=== PATIENT | male | born 1995 | race Caucasian/White ===

== ENCOUNTER 2019-09-23 20:02 | Emergency (ER) | payer MEDICAID ==
[~2019-09-23] VITALS: Ht 177.8 cm; Wt 68.9 kg
[2019-09-23 20:31] VITALS: BP_SYST 127
--- NOTE | 2019-09-23 20:31 | NUR ---
Patient triaged and placed in waiting room. VSS and patient appears in no acute distress at this time. Awaiting available bed, and MD notified of need for MSE.
[2019-09-23 23:30] LABS: BASOPHILS % (AUTO) 0.5 % (0.0-2.0); EOSINOPHILS % (AUTO) 0.3 % (0.0-4.0); HEMATOCRIT 45.9 % (36-54); HEMOGLOBIN 15.7 g/dL (14.0-18.0); LYMPHOCYTES % (AUTO) 23.3 % (20.5-51.5); MEAN CORPUSCULAR HEMOGLOBIN 33 pg (27-31); MEAN CORPUSCULAR HGB CONC 34 % (32-36); MEAN CORPUSCULAR VOLUME 95 fL (79.0-98.0); MONOCYTES # (AUTO) 0.8 K/uL (0.0-1.0); MONOCYTES % (AUTO) 9.3 % (1.7-9.3); NEUTROPHILS # (AUTO) 5.6 K/uL (1.8-7.7); NEUTROPHILS % (AUTO) 66.6 % (40.0-70.0); PLATELET COUNT (AUTO) 201 K/uL (130-430); RED BLOOD CELL COUNT(AUTO) 4.85 MIL/uL (4.2-6.2); RED CELL DISTRIBUTION WIDTH 12.7 % (9.0-15.0); WHITE BLOOD COUNT (AUTO) 8.4 K/uL (4.8-10.8)
--- NOTE | 2019-09-23 23:30 | NUR ---
Patient to ER bed 1 to gown for evaluation. Side rails up. Report given to ROHAN TALLEY.
[2019-09-23 23:39] LABS: CALCIUM 9.6 mg/dL (8.4-11.0); CREATININE 0.99 mg/dL (0.55-1.30)
--- NOTE | 2019-09-23 23:45 | NUR ---
Pt is a 24 y/o male who comes into the ER c/o nausea for 2 days. Pt states "I can't keep anything down". Pt also states that he has been throwing up some blood everytime he vomitted. Pt states his ABD is in a little pain due to throwing up too much, as well as some throat pain associated with the vomitting. Pt also states he has been constipated 2 days. Pt denies any SOB, chest pain. Will cont to monitor pt.
[2019-09-23 23:49] LABS: ALBUMIN 5.2 g/dL (3.4-4.8); TOTAL BILIRUBIN 0.6 mg/dL (0.0-1.0)
[2019-09-24] MEDS ORDERED: ONDANSETRON HCL 4 MG/2 ML VIAL IVP ONE (00:30)
[2019-09-24 00:31] LABS: LIPASE 69 U/L (73-393)
[2019-09-24 00:32] LABS: BILIRUBIN,URINE 2+ (NEGATIVE); BLOOD, URINE NEGATIVE (NEGATIVE); CLARITY/URINE CLEAR (CLEAR); COLOR,URINE YELLOW (YELLOW); GLUCOSE,URINE NEGATIVE (NEGATIVE); KETONES,URINE 3+ (NEGATIVE); LEUKOCYTE ESTERASE ,URINE NEGATIVE (NEGATIVE); NITRITE, URINE NEGATIVE (NEGATIVE); PH,URINE 6.5 (5.0-8.0); PROTEIN URINE 2+ (NEGATIVE); UROBILINOGEN,URINE 0.2 (0.2-1.0)
[2019-09-24 00:35] LABS: ALCOHOL, BLOOD < 3 mg/dL (<10)
[2019-09-24 00:45] LABS: BACTERIA,URINE FEW /HPF (None Seen); RBC,URINE 0-3 /HPF (0-3); WBC,URINE 0-3 /HPF (0-3)
--- NOTE | 2019-09-24 01:00 | NUR ---
ER Dr. Amos at bedside examining patient.
--- NOTE | 2019-09-24 01:10 | NUR ---
ER Dr. Amos at bedside performing rectal exam on patient.
[2019-09-24] MEDS ORDERED: PANTOPRAZOLE SODIUM 40 MG/VIAL (PROTONIX) IVP ONE (01:15)
--- NOTE | 2019-09-24 01:44 | NUR ---
Radiology taking pt for CT via gurney. No acute distress or discomfort noted.
[2019-09-24] MEDS ORDERED: IOHEXOL 100 ML IV ONE (02:02)
--- NOTE | 2019-09-24 03:15 | NUR ---
PT PO CHALLENGED PER MD ORDER. TOLERATED WELL. WILL CONT. TO MONITOR.
[2019-09-24 04:26] VITALS: BP_SYST 127
--- NOTE | 2019-09-24 04:26 | NUR ---
Patient given written and verbal discharge instructions and verbalizes understanding. ER MD Dr. Amos discussed with patient the results and treatment provided. Patient in stable condition. ID arm band removed. IV catheter removed intact and dressing applied, no active bleeding. Rx of bentyl and zofran given. Patient educated on pain management and to follow up with PMD. Pain Scale 0/10. Opportunity for questions provided and answered. Medication side effect fact sheet provided.
== END 2019-09-24 04:26 | disposition home or self-care (01) ==
LOC: SED 20:02
DX: R10.13 Epigastric pain (principal); R11.2 Nausea with vomiting, unspecified
CPT/HCPCS: 36415; 74177; 80053; 81000; 83690; 85025; 86886; 86900; 86901; 96374; 96375; 99284; C9113; G0482; J2405; Q9967

== ENCOUNTER 2020-07-03 17:28 | Emergency (ER) | payer MEDICAID ==
[~2020-07-03] VITALS: Ht 177.8 cm; Wt 63.5 kg
[2020-07-03 17:35] VITALS: BP_SYST 156
--- NOTE | 2020-07-03 17:37 | NUR ---
PLACED IN BED 8
--- NOTE | 2020-07-03 17:42 | NUR ---
Patient arrived via POV, AAOx4, and ambulatory grasping at abdomen. Patient c/c of nausea, vomiting, and abdominal pain. Patient states he stopped drinking and smoking pot 1 week ago. Patietn states yesterday his pain worsened and it has become unbearable. Pain is located in bilateral flank and epigastric pain. Patient notes dark yellow stool and increased pulling senstation to groin when he vomits. Patient is calm and cooperative, but notably uncomfortable, not relieved by repositioning. Will continue to follow up and monitor.
[2020-07-03] MEDS ORDERED: NACL 0.9% 1,000 ML IV ONE ×3 (17:44→20:30)
--- NOTE | 2020-07-03 17:44 | NUR ---
ER at bedside examining patient.
[2020-07-03] MEDS ORDERED: ONDANSETRON HCL 4 MG/2 ML VIAL IVP ONE (17:45)
[2020-07-03] MEDS ORDERED: MAG HYDROX/AL HYDROX/SIMETH 30 ML, DICYCLOMINE HCL 20 MG, LIDOCAINE VISCOUS 2% 15ML (PO... PO ONE ×3 (17:45)
[2020-07-03] MEDS ORDERED: KETOROLAC TROMETHAMINE 30 MG VIAL IVP ONE (17:45)
--- NOTE | 2020-07-03 18:00 | NUR ---
# 22 gauge angiocath placed to left forearm. Use of asceptic technique. Opsite placed over site. Blood return noted. Blood for lab drawn from site. Flushed with 10 cc of normal saline. No evidence of infiltration noted. Patient tolerated well.
[2020-07-03 18:23] LABS: BASOPHILS # (AUTO) 0.1 K/uL (0.0-0.2); BASOPHILS % (AUTO) 0.5 % (0.0-2.0); HEMATOCRIT 48.3 % (36-54); HEMOGLOBIN 16.1 g/dL (14.0-18.0); LYMPHOCYTES # (AUTO) 0.3 K/uL (1.0-5.5); LYMPHOCYTES % (AUTO) 2.5 % (20.5-51.5); MEAN CORPUSCULAR HEMOGLOBIN 31 pg (27-31); MEAN CORPUSCULAR HGB CONC 33 % (32-36); MEAN CORPUSCULAR VOLUME 94 fL (79.0-98.0); MONOCYTES # (AUTO) 0.3 K/uL (0.0-1.0); MONOCYTES % (AUTO) 2.2 % (1.7-9.3); NEUTROPHILS # (AUTO) 12.3 K/uL (1.8-7.7); NEUTROPHILS % (AUTO) 94.8 % (40.0-70.0); PLATELET COUNT (AUTO) 175 K/uL (130-430); RED BLOOD CELL COUNT(AUTO) 5.14 MIL/uL (4.2-6.2); RED CELL DISTRIBUTION WIDTH 12.7 % (9.0-15.0)
[2020-07-03 18:26] LABS: CREATININE 1.36 mg/dL (0.55-1.30)
[2020-07-03] MEDS ORDERED: LORazepam 2 MG/ML VIAL IVP ONE (18:30)
[2020-07-03 18:32] LABS: ALBUMIN 5.4 g/dL (3.4-4.8)
[2020-07-03 18:47] LABS: POTASSIUM 3.5 mmol/L (3.5-5.1)
--- NOTE | 2020-07-03 19:05 | NUR ---
Received report from GERRI Odell.
--- NOTE | 2020-07-03 19:10 | NUR ---
Patient states " my mother waited outside, she will ride me home."
--- NOTE | 2020-07-03 19:55 | NUR ---
Patient transported to radiology via wheelchair, accompanied by RT.
--- NOTE | 2020-07-03 20:22 | NUR ---
ER Dr. Edwards at bedside for eval.
--- NOTE | 2020-07-03 20:46 | NUR ---
Blood for labwork drawn from network mgr. Patient tolerated well.
[2020-07-03 21:20] LABS: CALCIUM 8.3 mg/dL (8.4-11.0); CREATININE 1.31 mg/dL (0.55-1.30); POTASSIUM 4.3 mmol/L (3.5-5.1)
[2020-07-03 22:12] VITALS: BP_SYST 110
--- NOTE | 2020-07-03 22:12 | NUR ---
Patient given written and verbal discharge instructions and verbalizes understanding. ER MD discussed with patient the results and treatment provided. Patient in stable condition. ID arm band removed. IV catheter removed intact and dressing applied, no active bleeding. Rx of Zofran and Mylanta given. Patient educated on pain management and to follow up with PMD. Pain Scale 1/10. Opportunity for questions provided and answered. Medication side effect fact sheet provided.
== END 2020-07-03 22:12 | disposition home or self-care (01) ==
LOC: SED 17:28
DX: E86.0 Dehydration (principal); R10.13 Epigastric pain; R11.2 Nausea with vomiting, unspecified; F12.90 Cannabis use, unspecified, uncomplicated; F17.290 Nicotine dependence, other tobacco product, uncomplicated; Z71.6 Tobacco abuse counseling
CPT/HCPCS: 36415; 36600; 74176; 80048; 80053; 82803; 83690; 85025; 96361; 96374; 96375; 99284; J1885; J2001; J2060; J2405; J7030

== ENCOUNTER 2020-07-05 14:25 | Emergency (ER) | payer MEDICAID ==
[~2020-07-05] VITALS: Ht 177.8 cm; Wt 60.8 kg
[2020-07-05 14:42] VITALS: BP_SYST 122
[2020-07-05] MEDS ORDERED: NACL 0.9% 1,000 ML IV ONE (15:02)
[2020-07-05] MEDS ORDERED: ONDANSETRON HCL 4 MG/2 ML VIAL IVP ONE (15:15)
[2020-07-05 15:43] LABS: BASOPHILS # (AUTO) 0.1 K/uL (0.0-0.2); EOSINOPHILS % (AUTO) 1.2 % (0.0-4.0); HEMATOCRIT 44.2 % (36-54); HEMOGLOBIN 14.9 g/dL (14.0-18.0); LYMPHOCYTES # (AUTO) 1.4 K/uL (1.0-5.5); LYMPHOCYTES % (AUTO) 33.5 % (20.5-51.5); MEAN CORPUSCULAR HEMOGLOBIN 32 pg (27-31); MEAN CORPUSCULAR HGB CONC 34 % (32-36); MEAN CORPUSCULAR VOLUME 94 fL (79.0-98.0); MONOCYTES # (AUTO) 0.4 K/uL (0.0-1.0); MONOCYTES % (AUTO) 8.6 % (1.7-9.3); NEUTROPHILS # (AUTO) 2.3 K/uL (1.8-7.7); NEUTROPHILS % (AUTO) 54.7 % (40.0-70.0); PLATELET COUNT (AUTO) 145 K/uL (130-430); RED CELL DISTRIBUTION WIDTH 12.7 % (9.0-15.0); WHITE BLOOD COUNT (AUTO) 4.1 K/uL (4.8-10.8)
[2020-07-05 15:56] LABS: CALCIUM 9.6 mg/dL (8.4-11.0); CREATININE 0.97 mg/dL (0.55-1.30); POTASSIUM 3.8 mmol/L (3.5-5.1)
[2020-07-05 16:13] LABS: ALBUMIN 4.6 g/dL (3.4-4.8); TOTAL BILIRUBIN 1.2 mg/dL (0.0-1.0)
[2020-07-05] MEDS ORDERED: HALOPERIDOL LACTATE 5 MG/ML VIAL IVP ONE (16:30)
[2020-07-05 16:51] LABS: BILIRUBIN,URINE 1+ (NEGATIVE); BLOOD, URINE NEGATIVE (NEGATIVE); CLARITY/URINE CLEAR (CLEAR); COLOR,URINE YELLOW (YELLOW); GLUCOSE,URINE NEGATIVE (NEGATIVE); KETONES,URINE 3+ (NEGATIVE); LEUKOCYTE ESTERASE ,URINE NEGATIVE (NEGATIVE); NITRITE, URINE NEGATIVE (NEGATIVE); PROTEIN URINE NEGATIVE (NEGATIVE); UROBILINOGEN,URINE 0.2 (0.2-1.0)
[2020-07-05 17:32] LABS: BACTERIA,URINE FEW /HPF (None Seen); RBC,URINE NONE SEEN /HPF (0-3); WBC,URINE NONE SEEN /HPF (0-3)
[2020-07-05 18:15] LABS: BARBITURATE, URINE NEGATIVE (NEG <=200); BENZODIAZEPINE, URINE NEGATIVE (NEG <=150); CANNABINOID, URINE POSITIVE (NEG <=50); COCAINE, URINE NEGATIVE (NEG <=150); METHAMPHETAMINES SCREEN,URINE NEGATIVE (NEG <=500); OPIATE, URINE NEGATIVE (NEG <=100); PHENCYCLIDINE SCREEN,URINE NEGATIVE (NEG <=25); UR TRICYCLIC ANTIDEPRESSANTS NEGATIVE (NEG <=300); URINE AMPHETAMINE NEGATIVE (NEG <=500); URINE METHADONE NEGATIVE (NEG <=200); URINE OXYCODONE SCREEN NEGATIVE (NEG <=100); URINE PROPOXYPHENE SCREEN NEGATIVE (NEG <=300)
[2020-07-05 19:18] VITALS: BP_SYST 118
== END 2020-07-05 19:18 | disposition home or self-care (01) ==
LOC: SED 14:25
DX: F12.988 Cannabis use, unspecified with other cannabis-induced disorder (principal); R11.2 Nausea with vomiting, unspecified; R10.84 Generalized abdominal pain
CPT/HCPCS: 36415; 80053; 80307; 81000; 83690; 85025; 96361; 96374; 96375; 99284; J1630; J2405; J7030

== ENCOUNTER 2021-02-13 13:10 | Emergency (ER) | payer MEDICAID ==
[~2021-02-13] VITALS: Ht 177.8 cm; Wt 65.3 kg
[2021-02-13 13:38] VITALS: BP_SYST 119
[2021-02-13] MEDS ORDERED: MAG HYDROX/AL HYDROX/SIMETH 30 ML, LIDOCAINE VISCOUS 2% 15ML (PO) 10 ML, DICYCLOMINE HC... PO ONE ×3 (15:30)
[2021-02-13] MEDS ORDERED: PROMETHAZINE INJ.Non-Formulary 25 MG/ML AMP IVP ONE ×2 (15:30)
[2021-02-13 15:40] LABS: BILIRUBIN,URINE NEGATIVE (NEGATIVE); BLOOD, URINE NEGATIVE (NEGATIVE); CLARITY/URINE CLEAR (CLEAR); COLOR,URINE YELLOW (YELLOW); GLUCOSE,URINE NEGATIVE (NEGATIVE); KETONES,URINE 3+ (NEGATIVE); LEUKOCYTE ESTERASE ,URINE NEGATIVE (NEGATIVE); NITRITE, URINE NEGATIVE (NEGATIVE); PROTEIN URINE TRACE (NEGATIVE); UROBILINOGEN,URINE 0.2 (0.2-1.0)
[2021-02-13 15:41] LABS: BASOPHILS # (AUTO) 0.1 K/uL (0.0-0.2); BASOPHILS % (AUTO) 0.7 % (0.0-2.0); EOSINOPHILS % (AUTO) 0.3 % (0.0-4.0); HEMATOCRIT 46.6 % (36-54); HEMOGLOBIN 15.6 g/dL (14.0-18.0); LYMPHOCYTES # (AUTO) 0.7 K/uL (1.0-5.5); LYMPHOCYTES % (AUTO) 9.4 % (20.5-51.5); MEAN CORPUSCULAR HEMOGLOBIN 33 pg (27-31); MEAN CORPUSCULAR HGB CONC 33 % (32-36); MEAN CORPUSCULAR VOLUME 100 fL (79.0-98.0); MONOCYTES # (AUTO) 0.2 K/uL (0.0-1.0); MONOCYTES % (AUTO) 3.1 % (1.7-9.3); NEUTROPHILS # (AUTO) 6.9 K/uL (1.8-7.7); NEUTROPHILS % (AUTO) 86.5 % (40.0-70.0); PLATELET COUNT (AUTO) 162 K/uL (130-430); RED BLOOD CELL COUNT(AUTO) 4.67 MIL/uL (4.2-6.2); RED CELL DISTRIBUTION WIDTH 13.3 % (9.0-15.0); WHITE BLOOD COUNT (AUTO) 7.9 K/uL (4.8-10.8)
[2021-02-13 15:57] LABS: ANION GAP 18 (5-15); CALCIUM 9.2 mg/dL (8.4-11.0); CHLORIDE 102 mmol/L (98-107); GLUCOSE 61 mg/dL (70-99); POTASSIUM 4.1 mmol/L (3.5-5.1); SODIUM SERUM 144 mmol/L (136-145); UREA NITROGEN, BLOOD 11 mg/dL (8-21)
[2021-02-13] MEDS ORDERED: PROCHLORPERAZINE EDISYLATE 10 MG/2 ML VIAL ONE (15:57)
[2021-02-13 15:58] LABS: GFR AFRICAN AMERICAN 132 mL/min (>90)
[2021-02-13] MEDS ORDERED: PROCHLORPERAZINE EDISYLATE 10 MG/2 ML VIAL IVP ONE (16:00)
[2021-02-13 16:02] LABS: ALANINE AMINOTRANSFERASE 21 U/L (12-78); ALBUMIN 4.9 g/dL (3.4-4.8); ALCOHOL, BLOOD 159 mg/dL (<10); ASPARTATE AMINOTRANSFERASE 30 U/L (10-37); LIPASE 53 U/L (73-393); TOTAL BILIRUBIN 0.5 mg/dL (0.0-1.0)
[2021-02-13 16:33] LABS: BACTERIA,URINE FEW /HPF (None Seen); RBC,URINE NONE SEEN /HPF (0-3); WBC,URINE 0-3 /HPF (0-3)
[2021-02-13 16:34] LABS: MUCUS,URINE 2+ /LPF (None Seen)
[2021-02-13] MEDS ORDERED: DEXTROSE 50% JECT 50 ML DISP.SYRIN ONE (16:34)
[2021-02-13] MEDS ORDERED: NACL 0.9% 3,000 ML IV ONE (16:45)
[2021-02-13] MEDS ORDERED: DEXTROSE 50% JECT 50 ML DISP.SYRIN IVP ONE (16:45)
[2021-02-13 18:06] LABS: ACETONE, SERUM NEGATIVE (NEGATIVE)
[2021-02-13] MEDS ORDERED: ONDA4TAB5 PO (18:06)
[2021-02-13 18:12] VITALS: BP_SYST 110
== END 2021-02-13 18:12 | disposition home or self-care (01) ==
LOC: SED 13:10
DX: K29.20 Alcoholic gastritis without bleeding (principal); E86.0 Dehydration; F10.10 Alcohol abuse, uncomplicated; Y90.6 Blood alcohol level of 120-199 mg/100 ml
CPT/HCPCS: 36415; 80053; 81000; 82009; 82962; 83690; 85025; 96374; 96375; 99284; G0482; J0780; J2001; J2550